=== PATIENT | male | born 1950 | race Caucasian/White ===

== ENCOUNTER 2018-05-07 04:59 | Emergency (ER) | payer OTHER ==
[~2018-05-07] VITALS: Ht 182.9 cm; Wt 90.7 kg
[2018-05-07] MEDS ORDERED: CALCIUM CHLOR(10%) 100MG/ML 10ML SYRINGE IV ONE (05:00)
[2018-05-07] MEDS ORDERED: EPINEPHrine HCL 1 MG/10 ML SYRG IV ONE (05:00)
[2018-05-07] MEDS ORDERED: SODIUM BICARBONATE 8.4% INJ 50ML SYRINGE IV ONE (05:00)
[2018-05-07 05:12] VITALS: BP 0/0
== END 2018-05-07 09:00 | disposition expired ==
LOC: EDBD 04:59 → ER 04:59
DX: I46.9 Cardiac arrest, cause unspecified (principal); E07.9 Disorder of thyroid, unspecified; E11.9 Type 2 diabetes mellitus without complications; E78.5 Hyperlipidemia, unspecified; I10 Essential (primary) hypertension
CPT/HCPCS: 99285; J0171